=== PATIENT | female | born 1950 | race Caucasian/White ===

== ENCOUNTER 2024-04-27 19:47 | Emergency (ER) | payer MEDICAID ==
[~2024-04-27] VITALS: Ht 152.4 cm; Wt 59.0 kg
[2024-04-27 19:53] VITALS: TEMP 36.9; O2SAT 100
[2024-04-27 20:29] VITALS: BP 160/90; PULSE 90; RESP 16
[2024-04-27] MEDS: IBUPROFEN 600MG TABLET PO ONE (20:29)
== END 2024-04-27 20:46 | disposition home or self-care (01) ==
LOC: ER 19:47
DX: M79.601 Pain in right arm (principal); I10 Essential (primary) hypertension; Z88.0 Allergy status to penicillin; Z86.39 Personal history of other endocrine, nutritional and metabolic disease
CPT/HCPCS: 73030; 73080; 73110; 99284